=== PATIENT | male | born 1990 | race Caucasian/White ===

== ENCOUNTER 2018-05-04 05:26 | Day surgery (SDC) | payer OTHER ==
[2018-05-04] MEDS ORDERED: CEFAZOLIN 2 GM/50 ML (PMX) 50 ML IVPB (05:30)
[2018-05-04] MEDS ORDERED: SOD CHLORIDE 0.9% 1,000 ML IV (05:30)
[2018-05-04] MEDS ORDERED: CEFAZOLIN 1 GM INJ (07:00)
[2018-05-04] MEDS ORDERED: ONDANSETRON 4 MG INJ IV (07:30)
[2018-05-04] MEDS ORDERED: OXYCODONE/ACETAMINOPHEN (5/325) TAB PO ×2 (07:30)
[2018-05-04] MEDS ORDERED: DIPHENHYDRAMINE 50 MG INJ IV (07:30)
[2018-05-04] MEDS ORDERED: IPRATROPIUM (NEB) 0.5 MG/2.5 ML AMP HHN (07:30)
[2018-05-04] MEDS ORDERED: TRIMETHOBENZAMIDE 100 MG/ML VIAL IM (07:30)
[2018-05-04] MEDS ORDERED: FENTAnyl 50 MCG/ML VIAL IV ×3 (07:30)
[2018-05-04] MEDS ORDERED: HYDROmorphONE 1 MG/5 ML IV SYRINGE IV ×3 (07:30)
[2018-05-04] MEDS ORDERED: hydrALAzine 20 MG INJ IV (07:30)
[2018-05-04] MEDS ORDERED: EPHEDrine SULFATE 50 MG/5 ML SYG IV (07:30)
[2018-05-04] MEDS ORDERED: ALBUTEROL 0.083% (NEB) 2.5 MG/3 ML AMP HHN (07:30)
[2018-05-04] MEDS ORDERED: MIDAZOLAM 1 MG/ML 2 ML INJ IV (07:30)
[2018-05-04] MEDS ORDERED: LABETALOL HCL 20MG INJ IV (07:30)
[2018-05-04] MEDS ORDERED: MEPERIDINE 25 MG INJ IV (07:30)
[2018-05-04] MEDS ORDERED: LIDOCAINE 100 MG SYRINGE (07:35)
[2018-05-04] MEDS ORDERED: PROPOFOL 20 ML (07:35)
[2018-05-04] MEDS ORDERED: FENTAnyl 50 MCG/ML VIAL (07:35)
[2018-05-04] MEDS ORDERED: MIDAZOLAM 1 MG/ML 2 ML INJ (07:38)
[2018-05-04] MEDS: BUPIVACAINE 0.5% (SDV) 30 ML INJ (08:00)
[2018-05-04] MEDS ORDERED: HYDROCODONE/APAP (5/325) TAB PO (08:00)
[2018-05-04] MEDS: LIDOCAINE 2% (MDV) 20 ML INJ (08:00)
== END 2018-05-04 09:25 | disposition home or self-care (01) ==
LOC: SDS 05:26
DX: L72.0 Epidermal cyst (principal)
CPT/HCPCS: 14020; 88307